=== PATIENT | male | born 1945 ===

== ENCOUNTER 2019-01-10 09:30 | Emergency (ER) | payer MEDICARE, MEDICAID ==
[2019-01-10 09:49] VITALS: RESP 18; TEMP 98; O2SAT 98; BMI 28.1
[2019-01-10 12:09] LABS: BASO % 0.4 % (0.0-2.0); EOS # 0.1 K/uL (0.0-0.7); EOS % 2.8 % (0.0-4.0); HEMOGLOBIN 14.4 g/dL (12.0-18.0); LYMPH # 1.2 K/uL (1.0-4.3); LYMPH % 23.5 % (20.0-40.0); MEAN CELL VOLUME 84.9 fl (80.0-94.0); MEAN CORPUSCULAR HEMOGLOBIN 27.7 pg (27.0-31.0); MEAN CORPUSCULAR HGB CONC 32.6 g/dL (33.0-37.0); MEAN PLATELET VOLUME 8.3 fl (7.2-11.7); MONO # 0.5 K/uL (0.0-0.8); MONO % 9.6 % (0.0-10.0); NEUT # 3.2 K/uL (1.8-7.0); NEUT % 63.7 % (50.0-75.0); NRBC % 0.1 % (0.0-0.0); RBC 5.19 Mil/uL (4.40-5.90); RED CELL DISTRIBUTION WIDTH 15.9 % (11.5-14.5)
[2019-01-10 12:10] LABS: URINE BILIRUBIN NEGATIVE (NEGATIVE); URINE BLOOD NEGATIVE (NEGATIVE); URINE CLARITY CLEAR (Clear); URINE COLOR STRAW (YELLOW); URINE GLUCOSE (UA) NEG (NEGATIVE); URINE LEUKOCYTE ESTERASE NEG Leu/uL (Negative); URINE PROTEIN NEGATIVE (NEGATIVE); URINE UROBILINOGEN 0.2-1.0 mg/dL (0.2-1.0)
[2019-01-10 12:18] LABS: ALB/GLOB RATIO 1.3 (1.0-2.1); ALBUMIN 4.4 g/dL (3.5-5.0); ALT/SGPT 30 U/L (21-72); AST/SGOT 23 U/L (17-59); BLOOD UREA NITROGEN 18 mg/dl (9-20); CALCIUM 9.5 mg/dL (8.4-10.2); GFR NON-AFRICAN AMERICAN > 60
[2019-01-10 12:24] LABS: BARBITURATES, UR NEGATIVE (NEGATIVE); BENZODIAZEPINES, UR NEGATIVE (NEGATIVE); OPIATES, UR NEGATIVE (NEGATIVE); PHENCYCLIDINE, UR NEGATIVE (NEGATIVE)
--- NOTE | 2019-01-10 13:55 | ED PDOC ---
HPI: Back Time Seen by Provider: 01/10/19 10:24 Chief Complaint (Nursing): Male Genitourinary History Per: Patient, Product Support Manager (Ann Field ([place])) Additional Complaint(s): Pt. states for the past 1.5 weeks he's had progressively worsening non-radiating b/l lower back pain. Pain is worse in the morning and improves as the day progresses after he takes Naproxen 375mg but then returns once medication wears off. Pt. states he was advised by Dr. Sahni ([place]) to take Naproxen as he has arthritis in the lower back. Further states for the past 6 months he's had worsening urinary frequency and incontinence. Pt. states in 2014 he had "prostate surgery" as it was enlarged and since then he's experienced urinary incontinence but has only worsened over the past 6 months. Of note, currently without any pain. Denies dysuria, flank pain, fever, chills, abdominal pain, weakness, numbness, tingling, saddle paresthesias, stool incontinence. Past Medical History Reviewed: Historical Data, Nursing Documentation, Vital Signs Vital Signs: Last Vital Signs Temp 98 F 01/10/19 09:49 Pulse 72 01/10/19 09:49 Resp 18 01/10/19 09:49 BP 145/79 01/10/19 09:49 Pulse Ox 98 01/10/19 09:49 Primary Care Provider: Non [facility] Provider, - Medical History PMH: Colonic Polyps, Fractures (RT. WRIST/CASTED NO SURGERY AGE 18), GERD (Omprezole), HTN, Hypercholesterolemia, Hyperthyroidism, Peripheral Edema (RT.LOWER LEG), Sleep Apnea (USES C-PAP ) Denies: Chronic Kidney Disease - Family History Family History: States: No Known Family Hx - Immunization History Hx Tetanus Toxoid Vaccination: No Hx Influenza Vaccination: No Hx Pneumococcal Vaccination: No - Home Medications Home Medications: Ambulatory Orders Medication Instructions Recorded Amlodipine Besylate 1 tab PO DAILY 06/17/15 Atorvastatin Calcium 1 tab PO DAILY 06/17/15 Losartan Potassium 1 tab PO DAILY 06/17/15 Methimazole 1 tab PO DAILY 06/17/15 Potassium Chloride [K-Dur 10] 1 ter PO DAILY 06/17/15 Aspirin [Ecotrin] 81 mg PO DAILY 06/11/16 Latanoprost 0.005% Opht [XALATAN 1 drp OP DAILY 06/11/16 2.5 Ml] Multivitamin/Iron/Folic Acid 1 each PO DAILY 06/11/16 [Certavite-Antioxidant Tablet] Naproxen [Naprosyn Tab] 375 mg PO DAILY 06/11/16 Omeprazole 20 mg PO DAILY 06/11/16 Timolol Maleate [Timoptic Ocumeter 1 drop OP DAILY 06/11/16 Plus 5 ml] Lidocaine 5% [Lidoderm] 1 ea TD DAILY PRN #5 patch 01/10/19 - Allergies Allergies/Adverse Reactions: Allergies Allergy/AdvReac Type Severity Reaction Status Date / Time No Known Allergies Allergy Verified 03/14/16 09:10 Review of Systems ROS Statement: Except As Marked, All Systems Reviewed And Found Negative Genitourinary Male: Positive for: Frequency, Incontinence Musculoskeletal: Positive for: Back Pain Physical Exam - Physical Exam Appears: Positive for: Well, Non-toxic, No Acute Distress Skin: Positive for: Normal Color, Warm. Negative for: Rash Eye Exam: Positive for: Normal appearance Cardiovascular/Chest: Positive for: Regular Rate, Rhythm Respiratory: Positive for: Normal Breath Sounds. Negative for: Respiratory Distress Gastrointestinal/Abdominal: Positive for: Normal Exam, Soft. Negative for: Tenderness, Guarding Back: Positive for: Normal Inspection. Negative for: L CVA Tenderness, R CVA Tenderness, Vertebral Tenderness Extremity: Positive for: Normal ROM, Other (b/l lower extremity strenght 5/5; b/l upper extremity strenght 5/5). Negative for: Calf Tenderness (b/l) Neurological/Psych: Positive for: Awake, Alert, Symmetric/Intact Strength, Oriented (x3), Gait (steady, unassisted) - Laboratory Results Result Diagrams: 01/10/19 12:05 01/10/19 12:05 Lab Results: Total Bilirubin 0.4 mg/dl (0.2-1.3) 01/10/19 12:05 AST 23 U/L (17-59) 01/10/19 12:05 ALT 30 U/L (21-72) 01/10/19 12:05 Alkaline Phosphatase 49 U/L (38-126) 01/10/19 12:05 Total Protein 7.8 G/DL (6.3-8.2) 01/10/19 12:05 Albumin 4.4 g/dL (3.5-5.0) 01/10/19 12:05 Globulin 3.4 gm/dL (2.2-3.9) 01/10/19 12:05 Albumin/Globulin Ratio 1.3 (1.0-2.1) 01/10/19 12:05 Urine Color Straw (YELLOW) 01/10/19 11:50 Urine Clarity Clear (Clear) 01/10/19 11:50 Urine pH 8.0 (5.0-8.0) 01/10/19 11:50 Ur Specific [place] 1.013 (1.003-1.030) 01/10/19 11:50 Urine Protein Negative mg/dL (NEGATIVE) 01/10/19 11:50 Urine Glucose (UA) Neg mg/dL (NEGATIVE) 01/10/19 11:50 Urine Ketones Negative mg/dL (NEGATIVE) 01/10/19 11:50 Urine Blood Negative (NEGATIVE) 01/10/19 11:50 Urine Nitrate Negative (NEGATIVE) 01/10/19 11:50 Urine Bilirubin Negative (NEGATIVE) 01/10/19 11:50 Urine Urobilinogen 0.2-1.0 mg/dL (0.2-1.0) 01/10/19 11:50 Ur Leukocyte Esterase Neg [place]/uL (Negative) 01/10/19 11:50 Urine RBC (Auto) 2 /hpf (0-3) 01/10/19 11:50 Urine Microscopic WBC 1 /hpf (0-5) 01/10/19 11:50 - ECG O2 Sat by Pulse Oximetry: 98 - Progress ED Course And Treament: Case d/w Dr. Osborn who agrees with plan and care. Labs, LS spine x-ray. Ann S ([place] Irish) On re-evaluation, pt. in no distress. Reports pain has not returned since being in ED. Advised to f/u with PMD or neurosurgery for further evaluation but is to return to ED immediately if symptoms worsen. Disposition - Clinical Impression Clinical Impression: Low back pain, Urinary frequency - Patient ED Disposition Is Patient to be Admitted: No - Disposition Referrals: Silas Nayak MD [Staff Provider] - Florencio Cruz Jr., MD [Staff Provider] - Disposition: Routine/Home Disposition Time: 13:00 Condition: IMPROVED Additional Instructions: FOLLOW UP WITH DR. NAYAK FOR FURTHER EVALUATION RETURN TO ED IMMEDIATELY IF SYMPTOMS WORSEN MENA VENTURA, thank you for letting us take care of you today. Your provider was Sobeida Osborn MD and you were treated for LOWER BACK PAIN. The emergency medical care you received today was directed at your acute symptoms. If you were prescribed any medication, please fill it and take as directed. It may take several days for your symptoms to resolve. Return to the Emergency Department if your symptoms worsen, do not improve, or if you have any other problems. Please contact your doctor or call one of the physicians/clinics you have been referred to that are listed on the Patient Visit Information form that is included in your discharge packet. Bring any paperwork you were given at discharge with you along with any medications you are taking to your follow up visit. Our treatment cannot replace ongoing medical care by a primary care provider outside of the emergency department. Thank you for allowing the [facility] team to be part of your care today. If you had an X-Ray or CT scan: A Radiologist will review the ED reading if any change in treatment is needed we will contact you. If you had a blood, urine, or wound culture: It will take several days for the results, if any change in treatment is needed we will contact you. If you had an STI test: It will take 48 hours for the results. Please call after 1 week if you have not heard back. Prescriptions: Lidocaine 5% [Lidoderm] 1 ea TD DAILY PRN #5 patch PRN Reason: Pain Instructions: Low Back Pain (DC) Forms: [employer] ([place]) Print Language: [place]
[2019-01-10] MEDS: Lidocaine 5% Patch TD STA (14:06)
[2019-01-10] MEDS ORDERED: Lidocaine 5% Patch TD ONE (14:06)
[2019-01-10 14:31] VITALS: BP 121/74; PULSE 61
--- NOTE | 2019-01-10 15:10 | RAD ---
Date of service: 01/10/2019 PROCEDURE: Radiographs of the Lumbar Spine. HISTORY: pain COMPARISON: No prior. TECHNIQUE: 5 views obtained. FINDINGS: BONES: Normal lumbar curvature. No fracture or spondylolisthesis appreciable. Advanced multilevel thoracolumbar spondylosis appreciated diffusely and is predominate toward the right anterior. No destructive bony lesion grossly evident. DISC SPACES: Disc height loss at L4-5 indicates degenerative disc disease. Further, diffuse spondylosis indicates the same at other levels as well as L4-5. OTHER FINDINGS: None. IMPRESSION: Advanced degenerative disease is seen at L4-5 with lesser degenerative changes at the remaining lumbar spine intervertebral discs. No fracture or spondylolisthesis evident.
== END 2019-01-10 14:14 | disposition home or self-care (01) ==
LOC: H.ER 09:30
DX: M54.2 Cervicalgia (principal); R39.15 Urgency of urination
CPT/HCPCS: 72100; 80053; 81003; 85025; 87086; 87181; 99285; G0480